=== PATIENT | female | born 1995 | race Two or more races ===

== ENCOUNTER 2018-03-26 18:06 | Emergency (ER) | payer SELFPAY ==
[2018-03-26] MEDS ORDERED: Triamcinolone Acetonide 40 MG/ML 1 ML MDV IM ONE (19:14)
--- NOTE | 2018-03-26 19:18 | EDM.PDOC ---
ED HPI GENERAL MEDICAL PROBLEM - General Chief Complaint: Skin Complaint Stated Complaint: REACTION TO FACE CREAM Time Seen by Provider: 03/26/18 19:22 Source of Information: Reports: Patient History Limitations: Reports: No Limitations - History of Present Illness INITIAL COMMENTS - FREE TEXT/NARRATIVE: pt arrived with alot of irritation on her face. She applied Og to entire face and now it is red and itching. There is no hives but there is a papular rash. Onset: Today, Sudden Duration: Hour(s): Location: Reports: Face Associated Symptoms: Reports: Rash face Pain Score (Numeric/FACES): 10 - Related Data Allergies Allergy/AdvReac Type Severity Reaction Status Date / Time No Known Allergies Allergy Verified 03/26/18 19:04 Home Meds: Home Meds NK [No Known Home Meds] 03/26/18 [History] Past Medical History - Past Health History Medical/Surgical History: Denies Medical/Surgical History Social & Family History - Tobacco Use Smoking Status *Q: Never Smoker - Recreational Drug Use Recreational Drug Use: No ED ROS GENERAL - Review of Systems Review Of Systems: See Below Constitutional: Reports: No Symptoms HEENT: Reports: Other (pt applied og to her entire face and it is now red. It is itchy and has a papular rash. ) Respiratory: Reports: No Symptoms Cardiovascular: Reports: No Symptoms Endocrine: Reports: No Symptoms GI/Abdominal: Reports: No Symptoms : Reports: No Symptoms Musculoskeletal: Reports: No Symptoms Skin: Reports: Pruritis, Rash, Erythema Neurological: Reports: No Symptoms ED EXAM, SKIN/RASH Exam: See Below Text/Narrative:: pt applied og to the face and it is now red and itchy. A papular rash appeared. She does not have a rash anywhere else Exam Limited By: No Limitations General Appearance: Alert, Mild Distress Ears: Normal External Exam Nose: Normal Inspection Throat/Mouth: Normal Inspection Head: Atraumatic Neck: Other ( face is very red. There is a papular rash present. ) Respiratory/Chest: No Respiratory Distress Cardiovascular: Regular Rate, Rhythm Course - Vital Signs Last Recorded V/S: Last Vital Signs Temp 36.5 C 03/26/18 19:09 Pulse 67 03/26/18 19:09 Resp 18 03/26/18 19:09 BP 125/55 L 01/20/19 19:09 Pulse Ox 98 03/26/18 19:09 - Orders/Labs/Meds Meds: Medications Discontinued Medications Generic Name Dose Route Start Last Admin Trade Name Danyel PRN Reason Stop Dose Admin Triamcinolone Acetonide 40 mg 03/26/18 19:14 Kenalog-40 IM 03/26/18 19:15 ASDIRECTED ONE - Re-Assessments/Exams Free Text/Narrative Re-Assessment/Exam: 03/26/18 19:26 pt was given kenalog 40mg im. She is not in resp distress. Departure - Departure Time of Disposition: 19:13 Disposition: Home, Self-Care 01 Condition: Fair Clinical Impression: Contact dermatitis - Discharge Information Instructions: Contact Dermatitis, [id number] Referrals: PCP,None [Primary Care Provider] - Forms: ED Department Discharge Care Plan Goals: kenalog cream >1 % apply to the face benadryl 50mg q6h prn for itching rtc if problems.
== END 2018-03-26 19:43 | disposition home or self-care (01) ==
LOC: JP.ED 18:06
DX: L25.0 Unspecified contact dermatitis due to cosmetics (principal)
CPT/HCPCS: 96372; 99283; J3301